=== PATIENT | female | born 1995 | race Caucasian/White ===

== ENCOUNTER 2018-08-26 22:04 | Emergency (ER) | payer MEDICAID ==
[2018-08-26] MEDS ORDERED: cefTRIAXone 2 GM, Lidocaine 1% 4.2 ML IM ONE ×2 (22:57)
--- NOTE | 2018-08-26 23:04 | EDM.PDOC ---
ED HPI GENERAL MEDICAL PROBLEM - General Chief Complaint: ENT Problem Stated Complaint: dental pain, facial swelling Time Seen by Provider: 08/26/18 22:51 Source of Information: Reports: Patient History Limitations: Reports: No Limitations - History of Present Illness INITIAL COMMENTS - FREE TEXT/NARRATIVE: Patient reports swelling and pain to the right side of her face that started this evening. Was diagnosed with a tooth abscess 2 weeks ago and given augmentin. Similar symptoms as to tonight's. This did clear up after the antibiotic course, however, it has returned. No fever, nausea, chills, vomiting. No other complaints. Onset: Today, Sudden Duration: Getting Worse Location: Reports: Face Quality: Reports: Ache Severity: Mild Improves with: Reports: Medication Worsens with: Reports: None Associated Symptoms: Reports: No Other Symptoms - Related Data Allergies Allergy/AdvReac Type Severity Reaction Status Date / Time No Known Allergies Allergy Verified 08/26/18 22:52 Home Meds: Home Meds Norgestimate-Ethinyl Estradiol [Tri-Linyah Tablet] 1 tab PO DAILY 08/26/18 [ History] ED ROS GENERAL - Review of Systems Review Of Systems: See Below Constitutional: Reports: No Symptoms HEENT: Reports: Dental Pain Respiratory: Reports: No Symptoms Cardiovascular: Reports: No Symptoms Endocrine: Reports: No Symptoms GI/Abdominal: Reports: No Symptoms : Reports: No Symptoms Musculoskeletal: Reports: No Symptoms Skin: Reports: Other (facial swelling) Neurological: Reports: No Symptoms Psychiatric: Reports: No Symptoms Hematologic/Lymphatic: Reports: No Symptoms Immunologic: Reports: No Symptoms ED EXAM, GENERAL - Physical Exam Exam: See Below Exam Limited By: No Limitations General Appearance: Alert, WD/WN, No Apparent Distress Eye Exam: Bilateral Eye: EOMI, Normal Inspection Throat/Mouth: Normal Inspection, Normal Lips, Normal Teeth, Normal Gums, Normal Oropharynx, Normal Voice, No Airway Compromise Head: Facial Swelling (minimal right maxillary swelling) Neck: Lymphadenopathy (R) Respiratory/Chest: No Respiratory Distress, Lungs Clear, Normal Breath Sounds, No Accessory Muscle Use, Chest Non-Tender Cardiovascular: Normal Peripheral Pulses, Regular Rate, Rhythm, No Edema, No Gallop, No JVD, No Murmur, No Rub GI/Abdominal: Normal Bowel Sounds, Soft, Non-Tender, No Organomegaly, No Distention, No Abnormal Bruit, No Mass Neurological: Alert, Oriented, CN II-XII Intact, Normal Cognition, Normal Gait, Normal Reflexes, No Motor/Sensory Deficits Skin Exam: Warm, Dry, Intact, Normal Color, No Rash. No: Erythema Lymphatic: Adenopathy (right anterior cervical) Course - Orders/Labs/Meds Orders: Active Orders 24 hr Category Date Time Status cefTRIAXone 2 GM,Lidocaine 1% 4.2 ML Med 08/26/18 22:57 Ordered cefTRIAXone [Rocephin] 2 gm Lidocaine 1% [Xylocaine-MPF 1%] 4.2 ml IM ONETIME Medication Orders Ceftriaxone Sodium 2 gm/ (Lidocaine HCl 4.2 ml) 0 gm IM ONETIME ONE Stop: 08/26/18 22:58 Meds: Medications Generic Name Dose Route Start Last Admin Trade Name Brandi PRN Reason Stop Dose Admin Ceftriaxone Sodium 2 gm/ 0 gm 08/26/18 22:57 Lidocaine HCl 4.2 ml IM 08/26/18 22:58 ONETIME ONE Departure - Departure Time of Disposition: 23:30 Disposition: Home, Self-Care 01 Condition: Good Clinical Impression: Dental abscess - Discharge Information *PRESCRIPTION DRUG MONITORING PROGRAM REVIEWED*: Not Applicable *COPY OF PRESCRIPTION DRUG MONITORING REPORT IN PATIENT [place]ANCIS[place]: Not Applicable Instructions: Dental Abscess, [id number], Amoxicillin; Clavulanic Acid tablets, Probiotics Referrals: Gely Vazquez MD [Primary Care Provider] - Additional Instructions: Plan 1. Follow up with a dentist for further evaluation this week. Your abscess will otherwise keep returning if you do not address the cause. 2. Stay well hydrated. 3. Take full course of augmentin even if feeling better. 4. Eat yogurt and/or probiotics to prevent a yeast infection and bacterial infection of the gut from antibiotic use. 5. Please call if you have any additional questions or concerns. - Problem List & Annotations (1) Dental abscess SNOMED Code(s): 974338806 Code(s): K04.7 - PERIAPICAL ABSCESS WITHOUT SINUS Status: Acute Priority : Low Current Visit: Yes - Problem List Review Problem List Initiated/Reviewed/Updated: Yes - My Orders Last 24 Hours: My Active Orders 08/26/18 22:57 cefTRIAXone 2 GM,Lidocaine 1% 4.2 ML cefTRIAXone [Rocephin] 2 gm Lidocaine 1% [ Xylocaine-MPF 1%] 4.2 ml IM ONETIME - Assessment/Plan Last 24 Hours: My Active Orders 08/26/18 22:57 cefTRIAXone 2 GM,Lidocaine 1% 4.2 ML cefTRIAXone [Rocephin] 2 gm Lidocaine 1% [ Xylocaine-MPF 1%] 4.2 ml IM ONETIME Assessment:: right upper dental abscess Plan: Plan 1. Follow up with a dentist for further evaluation this week. Your abscess will otherwise keep returning if you do not address the cause. 2. Stay well hydrated. 3. Take full course of augmentin even if feeling better. 4. Eat yogurt and/or probiotics to prevent a yeast infection and bacterial infection of the gut from antibiotic use. 5. Please call if you have any additional questions or concerns.
== END 2018-08-26 23:35 | disposition home or self-care (01) ==
LOC: VM.ED 22:04
DX: K04.7 Periapical abscess without sinus (principal)
CPT/HCPCS: 96372; 99283; J0696; J2001